=== PATIENT | female | born 1985 | race Caucasian/White ===

== ENCOUNTER 2016-11-28 12:13 | Emergency (ER) | payer OTHER ==
[2016-11-28 12:26] VITALS: BP 125/73; PULSE 95; TEMP 98.4; BMI 24.4
--- NOTE | 2016-11-28 15:09 | PDOC ---
History of Present Illness - General Chief Complaint: Cold Symptoms Stated Complaint: SORE THROAT COUGH FEVER Time Seen by Provider: 11/28/16 14:18 History Source: Patient Exam Limitations: No Limitations - History of Present Illness Initial Comments: 11/28/16 15:43 Chief complaint: Sore throat Patient is a healthy 31-year-old female with a few days of fever, sore throat and runny nose. Fever is getting better, no fever today and patient is complaining of worsening sore throat and difficulty swallowing. Patient did not take any medicine today. GENERAL/CONSTITUTIONAL: No fever, weakness. dizziness HEAD, EYES, EARS, NOSE AND THROAT: No change in vision. No ear pain or discharge. +sore throat. CARDIOVASCULAR: No chest pain RESPIRATORY: No shortness of breath or cough GASTROINTESTINAL: No pain, nausea, vomiting, diarrhea or constipation GENITOURINARY: No dysuria MUSCULOSKELETAL: No neck or back pain SKIN: No rash NEUROLOGIC: No headache, vertigo, loss of consciousness, or loss of sensation. GENERAL: The patient is awake, alert, and fully oriented, in no acute distress. HEAD: Normal with no signs of trauma. EYES: Pupils equal, round and reactive to light, sclera anicteric, conjunctiva clear. ENT: pharynx: +erythema, +exudate, uvula midline, no signs of abscess, normal speech NECK: supple CHEST: clear, nontender, rr ABD: soft, nontender EXTREMITIES: Normal range of motion, no edema. NEUROLOGICAL: Normal speech, normal gait. SKIN: Warm, Dry Past History - Past Medical History Allergies/Adverse Reactions: Allergies Allergy/AdvReac Type Severity Reaction Status Date / Time No Known Allergies Allergy Verified 11/28/16 12:26 Home Medications: Ambulatory Orders Amoxicillin - [Amoxicillin 875mg Tablet -] 875 mg PO BID #20 tablet 11/28/16 - Psycho/Social/Smoking Cessation Hx Suicidal Ideation: No Smoking History: Never smoked Information on smoking cessation initiated: No *Physical Exam - Vital Signs Last Vital Signs Temp Pulse Resp BP Pulse Ox 98.4 F 95 H 18 125/73 100 11/28/16 12:23 11/28/16 12:23 11/28/16 12:23 11/28/16 12:23 11/28/16 12:23 Medical Decision Making - Medical Decision Making 11/28/16 15:46 Patient with resolving URI, worsening sore throat with erythema and small amount of exudate, no signs of abscess, has normal voice, can swallow, can drink fluids and take medicine. Patient will be prescribed amoxicillin and given instructions. 11/28/16 15:46 *DC/Admit/Observation/Transfer Diagnosis at time of Disposition: Pharyngitis Qualifiers: Pharyngitis/tonsillitis etiology: unspecified etiology Qualified Code(s): J02.9 - Acute pharyngitis, unspecified - Discharge Dispostion Disposition: HOME Condition at time of disposition: Stable Admit: No - Prescriptions Prescriptions: Amoxicillin - [Amoxicillin 875mg Tablet -] 875 mg PO BID #20 tablet - Referrals Referrals: STAFF,NOT ON [Primary Care Provider] - - Patient Instructions Printed Discharge Instructions: DI for Pharyngitis/Tonsillopharyngitis -- Adult Additional Instructions: Drink 2-3 L of water daily Take Tylenol 650 mg every 4 hours or Motrin 600 mg every 6 hours for fever and pain Take the amoxicillin one tablet every 12 hours for 10 days, do not stop it early , he should also take acidophilus to help prevent stomach upset and/or yeast infection Return to the nearest ER if short of breath, unable to swallow or feeling sicker Followup with your doctor in one to 2 days Print Language: LITHUANIAN
== END 2016-11-28 15:12 | disposition home or self-care (01) ==
LOC: JERFT 12:13
DX: J02.0 Streptococcal pharyngitis (principal); B95.0 Streptococcus, group A, as the cause of diseases classified elsewhere
CPT/HCPCS: 87070; 87077; 87430; 99281-25

== ENCOUNTER 2017-11-01 19:13 | Emergency (ER) | payer SELFPAY ==
--- NOTE | 2017-11-01 19:18 | PDOC ---
Rapid Medical Evaluation Medical Evaluation: Allergies Allergy/AdvReac Type Severity Reaction Status Date / Time No Known Allergies Allergy Verified 11/28/16 12:26 11/01/17 19:14 I have performed a brief in-person evaluation of this patient. The patient presents with a chief complaint of: N/V in preg, 8 weeks preg, LMP end of aug 16, 6-7 days vomiting went to ER last week at [facility], given [place], appt with OB in [place] on 11/10, I have ordered the following: sabrina The patient will proceed to the ED for further evaluation. Discharge Disposition - Diagnosis Hyperemesis gravidarum - Referrals - Patient Instructions - Post Discharge Activity
[2017-11-01] MEDS ORDERED: ONDANSETRON *ODT* 4 MG TABLET SL ONE (19:20)
[2017-11-01 19:30] VITALS: BMI 25.0
[2017-11-01] MEDS ORDERED: ONDANSETRON *ODT* 4 MG TABLET ONE (19:37)
[2017-11-01] MEDS ORDERED: SODIUM CHLORIDE 1,000 ML IV STA (19:57)
--- NOTE | 2017-11-01 19:57 | PDOC ---
History of Present Illness - General Exam Limitations: No Limitations - History of Present Illness Initial Comments: 11/01/17 20:09 32 year old female who is 8 weeks , with no significant past medical history, who presents to the emergency room complaining of 1 week of nausea, nonbloody nonbilious vomiting, and diffuse abdominal pain. The patient explains that she was seen at another hospital on , 5 days ago where an ultrasound was performed which revealed an intrauterine of 8 weeks gestational age. She was discharged with Macrobid for a UTI and diclegis for nausea. She states that she finished the course of medication for nausea, but is persistently vomiting and cannot tolerate food and fluids. She denies cramping, bleeding, and release of fluids. Denies fever, chills. Denies sick contact. Denies recent travel. Allergies: NKA <Sejal Topete - Last Filed: 11/01/17 20:09> - General History Source: Patient <Quang Hidalgo - Last Filed: 11/01/17 22:57> - General Chief Complaint: Weakness Stated Complaint: FATIGUE ( 8 WKS ) Time Seen by Provider: 11/01/17 19:27 Past History <Sejal Topete - Last Filed: 11/01/17 20:09> - Past Medical History COPD: No - Suicide/Smoking/Psychosocial Hx Smoking History: Never smoked Have you smoked in the past 12 months: No Information on smoking cessation initiated: No Hx Alcohol Use: No Drug/Substance Use Hx: No <Quang Hidalgo - Last Filed: 11/01/17 22:57> - Past Medical History Allergies/Adverse Reactions: Allergies Allergy/AdvReac Type Severity Reaction Status Date / Time No Known Allergies Allergy Verified 11/01/17 19:25 Home Medications: Ambulatory Orders Pantoprazole Sodium [Protonix] 40 mg PO DAILY #30 tablet. 11/01/17 Trimethobenzamide HCl [Tigan] 300 mg PO TID #30 capsule 11/01/17 Review of Systems - Review of Systems Able to Perform ROS?: Yes Comments:: 11/01/17 20:09 CONSTITUTIONAL: Absent: fever, no chills, no fatigue EYES: Absent: visual changes ENT: Absent: ear pain, no sore throat CARDIOVASCULAR: Absent: chest pain, no palpitations RESPIRATORY: Absent: cough, no SOB GI: Present: +nausea, vomiting, diffuse abdominal pain Absent: no constipation, no diarrhea GENITOURINARY: Absent: dysuria, no frequency, no hematuria MUSCULOSKELETAL: Absent: back pain, no arthralgia, no myalgia SKIN: Absent: rash <Sejal Topete - Last Filed: 11/01/17 20:09> *Physical Exam - Vital Signs Last Vital Signs Temp Pulse Resp BP Pulse Ox 98.2 F 100 H 20 153/82 100 11/01/17 19:25 11/01/17 19:25 11/01/17 19:25 11/01/17 19:25 11/01/17 19:25 - Physical Exam Comments: 11/01/17 20:10 GENERAL: Well-appearing, well-nourished. No apparent distress. HEENT: Normocephalic, atraumatic. PERRL, EOM intact. CARDIOVASCULAR: Normal S1, S2. Regular rate and rhythm. PULMONARY: Clear to auscultation bilaterally. ABDOMEN: +mild diffuse abdominal tenderness. Soft. EXTREMITIES: Normal ROM in all four extremities. No gross deformities. SKIN: Warm, dry. No rash NEUROLOGICAL: No focal neurological deficits. <Sejal Topete - Last Filed: 11/01/17 20:09> - Vital Signs Last Vital Signs Temp Pulse Resp BP Pulse Ox 98.2 F 100 H 20 153/82 100 11/01/17 19:25 11/01/17 19:25 11/01/17 19:25 11/01/17 19:25 11/01/17 19:25 <Quang Hidalgo - Last Filed: 11/01/17 22:57> ED Treatment Course - Medications Given in the ED: ED Medications Discontinued Medications Generic Name Dose Route Start Last Admin Trade Name Freq PRN Reason Stop Dose Admin Ondansetron HCl 8 mg 11/01/17 19:20 11/01/17 19:43 Zofran Odt - SL 11/01/17 19:21 8 mg ONCE ONE Administration <Sejal Topete - Last Filed: 11/01/17 20:09> - LABORATORY CBC & Chemistry Diagram: 11/01/17 20:30 11/01/17 20:30 - Medications Given in the ED: ED Medications Discontinued Medications Generic Name Dose Route Start Last Admin Trade Name Adriana PRN Reason Stop Dose Admin Ondansetron HCl 8 mg 11/01/17 19:20 11/01/17 19:43 Zofran Odt - SL 11/01/17 19:21 8 mg ONCE ONE Administration <Quang Hidalgo - Last Filed: 11/01/17 22:57> Medical Decision Making - Medical Decision Making 11/01/17 22:56 Dr. Hidalgo: The scribe's documentation has been prepared under my direction and personally reviewed by me in its entirery. I confirm that the note above accurately reflects all work, treatment, procedures, and medical decision making performed by me. <Quang Hidalgo - Last Filed: 11/01/17 22:57> *DC/Admit/Observation/Transfer - Attestations Scribe Attestion: 11/01/17 20:10 Documentation prepared by VEENA Wright, acting as medical planner for Quang Hidalgo MD. <Sejal Topete - Last Filed: 11/01/17 20:09> - Discharge Dispostion Admit: No <Quang Hidalgo - Last Filed: 11/01/17 22:57> Diagnosis at time of Disposition: Hyperemesis gravidarum - Discharge Dispostion Disposition: HOME Condition at time of disposition: Stable - Prescriptions Prescriptions: Pantoprazole Sodium [Protonix] 40 mg PO DAILY #30 tablet. Trimethobenzamide HCl [Tigan] 300 mg PO TID #30 capsule - Referrals Referrals: Ceci Wallace MD [Staff Physician] - - Patient Instructions Printed Discharge Instructions: DI for Hyperemesis Gravidarum Print Language: FRISIAN
[2017-11-01] MEDS ORDERED: PANTOPRAZOLE SODIUM 40 MG VIAL IVPUSH ONE (19:58)
[2017-11-01] MEDS ORDERED: DEXTROSE 5%-0.45% SALINE 1,000 ML IV SCH (20:00)
[2017-11-01] MEDS ORDERED: PANTOPRAZOLE SODIUM 40 MG/100 ML BAG IVPB ONE (20:17)
[2017-11-01 20:40] LABS: BASOPHIL 0.6 % (0-2.0); EOSINOPHIL 0.3 % (0-4.5); MCH 29.3 pg (25.7-33.7); MCHC 33.5 g/dl (32.0-36.0); MEAN CELL VOLUME 87.3 fl (80-96); MEAN PLT VOLUME 7.3 fl (7.5-11.1); NEUTROPHILS 68.1 % (42.8-82.8); PLATELET COUNT 359 K/MM3 (134-434); RDW 12.7 % (11.6-15.6); WHITE BLOOD COUNT 13.4 K/mm3 (4.0-10.0)
[2017-11-01 21:13] LABS: ACETONE SERUM NEGATIVE (NEGATIVE)
[2017-11-01 21:17] LABS: ALBUMIN 3.7 g/dl (3.4-5.0); ANION GAP 8 (8-16); BILIRUBIN,TOTAL 0.9 mg/dL (0.2-1.0); CALCIUM 8.9 mg/dL (8.5-10.1); CO2 26 mmol/L (21-32); CREATININE 0.6 mg/dL (0.55-1.02); GLUCOSE,RANDOM 80 mg/dL (74-106); SGOT/AST 25 U/L (15-37); SGPT/ALT 41 U/L (12-78); TOT PROT 7.6 g/dl (6.4-8.2)
[2017-11-01 21:32] LABS: ALK PHOS 69 U/L (45-117)
[2017-11-01 22:57] VITALS: BP 105/65; PULSE 87; TEMP 99.6
== END 2017-11-01 23:14 | disposition home or self-care (01) ==
LOC: JER 19:13
PROC: 3E0337Z Introduction of Electrolytic and Water Balance Substance into Peripheral Vein, Percutaneous Approach (ICD-10-PCS; principal; 2017-11-01)
PROC: 3E033GC Introduction of Other Therapeutic Substance into Peripheral Vein, Percutaneous Approach (ICD-10-PCS; 2017-11-01)
DX: O26.891 Other specified pregnancy related conditions, first trimester (principal); O21.0 Mild hyperemesis gravidarum; Z3A.08 8 weeks gestation of pregnancy
CPT/HCPCS: 36415; 76801-TC; 76817-TC; 80053; 82009; 84702; 85025; 99281-25

== ENCOUNTER 2017-11-07 10:32 | Emergency (ER) | payer OTHER ==
[2017-11-07 10:40] VITALS: BMI 25.0
[2017-11-07] MEDS ORDERED: ONDANSETRON 4 MG/2 ML VIAL IVPB ONE (11:36)
[2017-11-07] MEDS ORDERED: SODIUM CHLORIDE 1,000 ML IV STA (11:36)
[2017-11-07] MEDS ORDERED: ONDANSETRON 4 MG/2 ML VIAL ONE (11:57)
[2017-11-07] MEDS ORDERED: FAMOTIDINE 20 MG/50 ML IVPB 20 MG/50 ML MG IVPB ONE (11:57)
[2017-11-07] MEDS ORDERED: FAMOTIDINE 20 MG/50 ML IVPB 50 MG/125 ML MG IVPB ONE (12:00)
[2017-11-07 12:04] LABS: BASOPHIL 0.3 % (0-2.0); EOSINOPHIL 0.1 % (0-4.5); MCH 28.8 pg (25.7-33.7); MCHC 33.2 g/dl (32.0-36.0); MEAN CELL VOLUME 86.6 fl (80-96); MEAN PLT VOLUME 7.3 fl (7.5-11.1); NEUTROPHILS 81.9 % (42.8-82.8); PLATELET COUNT 323 K/MM3 (134-434); RDW 12.9 % (11.6-15.6); WHITE BLOOD COUNT 11.3 K/mm3 (4.0-10.0)
--- NOTE | 2017-11-07 12:08 | PDOC ---
History of Present Illness - General Chief Complaint: Pain, Acute Stated Complaint: 8 WEEK PREG,VOMITING Time Seen by Provider: 11/07/17 10:52 - History of Present Illness Initial Comments: 11/07/17 12:07 32 F @ approx 9 weeks gestation by TVUS, presenting with N/V. Pt states that she has h/o hyperemesis gravidarum. However, the medications she has been taking have not helped much. She reports morning nausea as well as nausea and vomiting after every meal. Denies diarrhea. Endorses epigastric cramping with vomiting. No lower abdominal pain. No vaginal bleeding/discharge. Pt also endorses foul smelling urine. Was diagnosed with UTI last week and completed course of macrobid. Denies F/C. Denies flank pain. Past History - Past Medical History Allergies/Adverse Reactions: Allergies Allergy/AdvReac Type Severity Reaction Status Date / Time No Known Allergies Allergy Verified 11/07/17 10:34 Home Medications: Ambulatory Orders Pantoprazole Sodium [Protonix] 40 mg PO DAILY #30 tablet.dr 11/01/17 Trimethobenzamide HCl [Tigan] 300 mg PO TID #30 capsule 11/01/17 Ondansetron [Zofran *Odt*] 8 mg SL BID PRN #30 od.tablet 11/07/17 COPD: No Other medical history: DENIES. - Reproductive History Is Patient Now?: Yes - Suicide/Smoking/Psychosocial Hx Smoking History: Never smoked Have you smoked in the past 12 months: No Hx Alcohol Use: No Drug/Substance Use Hx: No Review of Systems - Review of Systems Comments:: 11/07/17 12:25 "GENERAL/CONSTITUTIONAL: No fever or chills. No weakness. HEAD, EYES, EARS, NOSE AND THROAT: No change in vision. No ear pain or discharge. No sore throat. CARDIOVASCULAR: No chest pain or shortness of breath. RESPIRATORY: No cough, wheezing, or hemoptysis. GASTROINTESTINAL: +N/V, epigastric cramps, no diarrhea or constipation. GENITOURINARY: +foul smelling urine, No dysuria, frequency, or change in urination. MUSCULOSKELETAL: No joint or muscle swelling or pain. No neck or back pain. SKIN: No rash NEUROLOGIC: No headache, vertigo, loss of consciousness, or change in strength/ sensation. ENDOCRINE: No increased thirst. No abnormal weight change. HEMATOLOGIC/LYMPHATIC: No anemia, easy bleeding, or history of blood clots. ALLERGIC/IMMUNOLOGIC: No hives or skin allergy. " *Physical Exam - Vital Signs Last Vital Signs Temp Pulse Resp BP Pulse Ox 98.3 F 98 H 19 128/76 100 11/07/17 10:35 11/07/17 10:35 11/07/17 10:35 11/07/17 10:35 11/07/17 10:35 - Physical Exam Comments: 11/07/17 12:25 "GENERAL: Awake, alert, and fully oriented, in no acute distress HEAD: No signs of trauma EYES: PERRLA, EOMI, sclera anicteric, conjunctiva clear ENT: Auricles normal inspection, hearing grossly normal, nares patent, oropharynx clear without exudates. Moist mucosa NECK: Nontender, no stepoffs, Normal ROM, supple, no lymphadenopathy, JVD, or masses LUNGS: Breath sounds equal, clear to auscultation bilaterally. No wheezes, and no crackles HEART: Regular rate and rhythm, normal S1 and S2, no murmurs, rubs or gallops ABDOMEN: Soft, +epigastric tenderness, normoactive bowel sounds. No guarding, no rebound. No masses EXTREMITIES: Normal range of motion, no edema. No clubbing or cyanosis. No cords, erythema, or tenderness NEUROLOGICAL: Cranial nerves II through XII intact. 5/5 strength and sensation in all extremities, Normal speech, normal gait SKIN: Warm, Dry, normal turgor, no rashes or lesions noted. " ED Treatment Course - LABORATORY CBC & Chemistry Diagram: 11/07/17 11:55 11/07/17 11:55 - ADDITIONAL ORDERS Additional order review: 11/07/17 11:55 RBC 4.45 MCV 86.6 MCHC 33.2 RDW 12.9 MPV 7.3 L Neutrophils % 81.9 D Lymphocytes % 14.2 D Monocytes % 3.5 L Eosinophils % 0.1 Basophils % 0.3 - Medications Given in the ED: ED Medications Discontinued Medications Generic Name Dose Route Start Last Admin Trade Name Freq PRN Reason Stop Dose Admin Ondansetron HCl 4 mg 11/07/17 11:36 11/07/17 12:05 Zofran Injection IVPB 11/07/17 11:37 4 mg ONCE ONE Administration Medical Decision Making - Medical Decision Making 11/07/17 12:25 32 F @ 9 weeks presenting with N+V. Consistent with known hyperemesis gravidarum. Pt non-toxic appearing with normal vitals. Abdomen notable only for epigastric tenderness. Pt may also have UTI contributing to symptoms. Completed course of macrobid. If UA consistent with UTI, consider tx for pyelo. - Labs, UA - IVF, zofran 11/07/17 13:51 CBC,CMP WBC 11.3 K/mm3 (4.0-10.0) H 11/07/17 11:55 RBC 4.45 M/mm3 (3.60-5.2) 11/07/17 11:55 Hgb 12.8 GM/dL (10.7-15.3) 11/07/17 11:55 Hct 38.6 % (32.4-45.2) 11/07/17 11:55 MCV 86.6 fl (80-96) 11/07/17 11:55 MCH 28.8 pg (25.7-33.7) 11/07/17 11:55 MCHC 33.2 g/dl (32.0-36.0) 11/07/17 11:55 RDW 12.9 % (11.6-15.6) 11/07/17 11:55 Plt Count 323 K/MM3 (134-434) 11/07/17 11:55 MPV 7.3 fl (7.5-11.1) L 11/07/17 11:55 Neutrophils % 81.9 % (42.8-82.8) D 11/07/17 11:55 Lymphocytes % 14.2 % (8-40) D 11/07/17 11:55 Monocytes % 3.5 % (3.8-10.2) L 11/07/17 11:55 Eosinophils % 0.1 % (0-4.5) 11/07/17 11:55 Basophils % 0.3 % (0-2.0) 11/07/17 11:55 Sodium 134 mmol/L (136-145) L 11/07/17 11:55 Potassium 4.2 mmol/L (3.5-5.1) 11/07/17 11:55 Chloride 102 mmol/L (98-107) 11/07/17 11:55 Carbon Dioxide 22 mmol/L (21-32) 11/07/17 11:55 Anion Gap 10 (8-16) 11/07/17 11:55 BUN 7 mg/dL (7-18) 11/07/17 11:55 Creatinine 0.5 mg/dL (0.55-1.02) L 11/07/17 11:55 Creat Clearance w eGFR > 60 (>60) 11/07/17 11:55 Random Glucose 74 mg/dL (74-106) 11/07/17 11:55 Calcium 9.2 mg/dL (8.5-10.1) 11/07/17 11:55 Total Bilirubin 0.8 mg/dL (0.2-1.0) 11/07/17 11:55 AST 15 U/L (15-37) D 11/07/17 11:55 ALT 30 U/L (12-78) D 11/07/17 11:55 Alkaline Phosphatase 64 U/L (45-117) 11/07/17 11:55 Creatine Kinase Cancelled 11/07/17 11:58 Troponin I Cancelled 11/07/17 11:58 Total Protein 7.7 g/dl (6.4-8.2) 11/07/17 11:55 Albumin 3.7 g/dl (3.4-5.0) 11/07/17 11:55 Lipase 260 U/L (73-393) 11/07/17 11:55 Beta HCG, Quant 036014.1 mIU/ml 11/07/17 11:55 Urine Test Results Urine Color Dkyellow 11/07/17 13:00 Urine Appearance Slcloudy 11/07/17 13:00 Urine pH 5.0 (5.0-8.0) 11/07/17 13:00 Ur Specific [place] 1.031 (1.001-1.035) 11/07/17 13:00 Urine Protein 1+ (NEGATIVE) H 11/07/17 13:00 Urine Glucose (UA) Negative (NEGATIVE) 11/07/17 13:00 Urine Ketones 2+ (NEGATIVE) H 11/07/17 13:00 Urine Blood Negative (NEGATIVE) 11/07/17 13:00 Urine Nitrite Negative (NEGATIVE) 11/07/17 13:00 Urine Bilirubin Negative (NEGATIVE) 11/07/17 13:00 Ur Epithelial Cells Rare /HPF (FEW) 11/07/17 13:00 Urine Mucus Many 11/07/17 13:00 11/07/17 13:59 Pt re-evaluated. Now tolerating PO juice and crackers. Pt reports resolution of her nausea. Repeat examination benign, no abdominal tenderness. Vitals stable, pt with no complaints and well appearing. Clinically stable for DC. *DC/Admit/Observation/Transfer Diagnosis at time of Disposition: Hyperemesis gravidarum - Discharge Dispostion Disposition: HOME - Prescriptions Prescriptions: Ondansetron [Zofran *Odt*] 8 mg SL BID PRN #30 od.tablet PRN Reason: Nausea - Referrals Referrals: José Miguel Sheppard MD [Staff Physician] - Aayush Edmondson MD [Staff Physician] - - Patient Instructions Printed Discharge Instructions: DI for Hyperemesis Gravidarum Additional Instructions: Take one zofran every 12 hours as needed for nausea and vomiting. If you experience worsening nausea, abdominal pain, fevers, or any other concerning symptoms, return to the ER immediately. Otherwise, follow up with your writing manager within 1 week for a re-evaluation. Call the numbers provided to make appointments with our OB clinic and primary care clinic. - Post Discharge Activity - Attestations Physician Attestion: 11/07/17 13:59 I, Dr. Jean Pierre Rodríguez MD, attest that this document has been prepared under my direction and personally reviewed by me in its entirety. I further attest, that it accurately reflects all work, treatment, procedures and medical decision -making performed by me.
[2017-11-07 12:31] LABS: ALBUMIN 3.7 g/dl (3.4-5.0); ANION GAP 10 (8-16); BILIRUBIN,TOTAL 0.8 mg/dL (0.2-1.0); CALCIUM 9.2 mg/dL (8.5-10.1); CO2 22 mmol/L (21-32); CREATININE 0.5 mg/dL (0.55-1.02); GLUCOSE,RANDOM 74 mg/dL (74-106); SGOT/AST 15 U/L (15-37); SGPT/ALT 30 U/L (12-78); TOT PROT 7.7 g/dl (6.4-8.2)
[2017-11-07 12:45] LABS: ALK PHOS 64 U/L (45-117)
[2017-11-07 13:21] LABS: CPK 34 IU/L (26-192); TROPONIN I < 0.02 ng/ml (0.00-0.05)
[2017-11-07 13:25] LABS: URINE APPEARANCE SLCLOUDY; URINE BILIRUBIN NEGATIVE (NEGATIVE); URINE BLOOD NEGATIVE (NEGATIVE); URINE COLOR DKYELLOW; URINE GLUCOSE (UA) NEGATIVE (NEGATIVE); URINE KETONE 2+ (NEGATIVE); URINE LEUK ESTERASE NEGATIVE (NEGATIVE); URINE NITRITE NEGATIVE (NEGATIVE)
[2017-11-07 13:30] LABS: URINE PROTEIN 1+ (NEGATIVE)
[2017-11-07 13:35] LABS: URINE MUCUS MANY; URINE RBC 1 /hpf (0-3); URINE WBC 1 /hpf (3-5)
--- NOTE | 2017-11-07 14:32 | EKG ---
Test Reason : Blood Pressure : / mmHG Vent. Rate : 076 BPM Atrial Rate : 076 BPM P-R Int : 172 ms QRS Dur : 082 ms QT Int : 382 ms P-R-T Axes : 063 054 023 degrees QTc Int : 429 ms NORMAL SINUS RHYTHM NONSPECIFIC T WAVE ABNORMALITY ABNORMAL ECG NO PREVIOUS ECGS AVAILABLE Confirmed by ASHELE FUNEZ MD ([id number]) on 11/07/2017 2:32:31 PM Referred By: Confirmed By:ASHLEE FUNEZ MD
[2017-11-07 14:33] VITALS: BP 104/52; PULSE 82; TEMP 97.8
[2017-11-07 18:36] LABS: URINE LEUK ESTERASE NEGATIVE (NEGATIVE)
== END 2017-11-07 14:37 | disposition home or self-care (01) ==
LOC: JER 10:32
PROC: 3E033GC Introduction of Other Therapeutic Substance into Peripheral Vein, Percutaneous Approach (ICD-10-PCS; principal; 2017-11-07)
PROC: 3E0337Z Introduction of Electrolytic and Water Balance Substance into Peripheral Vein, Percutaneous Approach (ICD-10-PCS; 2017-11-07)
DX: O26.891 Other specified pregnancy related conditions, first trimester (principal); Z3A.09 9 weeks gestation of pregnancy; O21.0 Mild hyperemesis gravidarum
CPT/HCPCS: 36415; 80053; 81003; 81015; 82550; 83690; 84484; 84702; 85025; 86850; 86900; 86901; 87086; 93005; 93010; 99283-25

== ENCOUNTER 2018-05-31 06:40 | Inpatient (IN) | payer OTHER ==
[2018-05-31] MEDS ORDERED: ELECTROLYTE-148 SOLN 500 ML IV ONE (07:00)
[2018-05-31] MEDS ORDERED: CITRIC ACID/SODIUM CITRATE 30 ML UNIT-DOSE CUP PO ONE (07:53)
[2018-05-31] MEDS ORDERED: ELECTROLYTE-148 SOLN 1,000 ML IV SCH (08:00)
[2018-05-31] MEDS ORDERED: morphine SULFATE/Preservative Free 0.5 MG/ML (1cc Syringe) ONE (08:07)
[2018-05-31] MEDS ORDERED: BUPIVACAINE 0.75% IN DEXTROSE/PF 2ML AMPULE NR ONE (08:08)
--- NOTE | 2018-05-31 08:08 | HP ---
Past Medical History - Primary Care Physician PCP:: Vero Dunbar - Admission Chief Complaint: 33 yrs , 39 weeks , iup , previous c/section requests for repeat c/section History of Present Illness: PNC at [address] [place] [address] . wt gain 15 lbs panel : A neg , Rpr nr,Hbsag neg, Rubella immune, gc/ct neg, Pap nilm, Hiv neg 02/27/18 pngt 45, rpr nr, Quantiferon neg 03/20/18 coomb's neg followed in 2 days by Rhogam antepartum 05/15/18 Gbs neg, gc/ct neg. hiv neg , h/h 11.6/34.2 sono done by 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 Weeks Gestation by Dates: 36.4 ...EDC by Dates: 06/24/18 ...EDC by Sono: 06/07/18 (39) Heme/Onc: Yes: Anemia (treated with iron & pnv) Infectious Disease: No: AIDS, HIV, STD's, Tuberculosis Psych: No: Addictions, Anxiety, Bipolar, Depression, Panic, Psychosis, Schizophrenia - Past Surgical History Hx Myomectomy: No Hx Transabdominal Cerclage: No - Smoking History Smoking history: Never smoked Have you smoked in the past 12 months: No - Alcohol/Substance Use Hx Alcohol Use: No History of Substance Use: reports: None Home Medications - Allergies Allergies/Adverse Reactions: Allergies Allergy/AdvReac Type Severity Reaction Status Date / Time No Known Allergies Allergy Verified 05/31/18 07:22 - Home Medications Home Medications: Ambulatory Orders Pnv No.95/Ferrous Fum/Folic AC [ Vitamin Tablet] 1 each PO DAILY Physical Exam - Maternity Vital Signs: Vital Signs Temperature 98.5 F 05/31/18 06:40 Pulse Rate 100 H 05/31/18 06:40 Respiratory Rate 18 05/31/18 06:40 Blood Pressure 108/70 05/31/18 06:40 O2 Sat by Pulse Oximetry (%) Selected Entries 05/31/18 06:40 Weight 175 lb Constitutional: Yes: Well Nourished, Obese Eyes: Yes: WNL HENT: Yes: WNL, Normocephalic Neck: Yes: WNL Cardiovascular: Yes: WNL Lungs: Clear to auscultation Breast(s): Yes: WNL - Abdominal Exam/OB Fundal Height: 38 Number of Fetuses: Single Presentation: Vertex Contractions: No Monitor Mode: External Heart Rate (range): 136 Heart Rate Location: [facility] Category: I Accelerations: Uniform Decelerations: None - Vaginal Exam/OB Vaginal Bleediing: No Speculum Exam: No Dilatation (cm): close Effacement (%): unefface Presentation: Vertex/Position Station: -3 - Physical Exam Musculoskeletal: Yes: WNL Extremities: Yes: WNL. No: Calf Tenderness Edema: Yes Edema: LLE: 1+, RLE: 1+ Integumentary: Yes: WNL, Incision (pfannensteil scar), Tattoos Deep Tendon Reflex Grade: Normal +2 ...Motor Strength: WNL Psychiatric: Yes: WNL, Alert, Oriented - Labs Lab Results: Laboratory Tests 05/28/18 05/28/18 05/28/18 08:58 08:58 08:58 WBC 9.0 RBC 3.83 Hgb 11.6 Hct 34.4 Plt Count 273 PT with INR 10.70 INR 0.95 Sodium Potassium Chloride Carbon Dioxide BUN Creatinine Creat Clearance w eGFR Random Glucose AST ALT Urine Protein Negative Urine Blood 2+ H Ur Leukocyte Esterase 3+ H Urine WBC (Auto) 8 Urine RBC (Auto) 49 RPR Titer 05/28/18 05/28/18 08:58 08:58 WBC RBC Hgb Hct Plt Count PT with INR INR Sodium 137 Potassium 4.0 Chloride 104 Carbon Dioxide 23 BUN 8 Creatinine 0.6 Creat Clearance w eGFR > 60 Random Glucose 72 L AST 17 ALT 16 Urine Protein Urine Blood Ur Leukocyte Esterase Urine WBC (Auto) Urine RBC (Auto) RPR Titer Nonreactive Problem List - Problems (1) with 39 completed weeks gestation Code(s): Z3A.39 - 39 WEEKS GESTATION OF (2) Previous section Code(s): Z98.891 - HISTORY OF UTERINE SCAR FROM PREVIOUS SURGERY (3) Obesity (BMI 30.0-34.9) Code(s): E66.9 - OBESITY, UNSPECIFIED Assessment/Plan 32 yrs , previous c/s , 39 wks requests repeat c/section Plan repeat c/section
[2018-05-31] MEDS ORDERED: ceFAZolin SODIUM 1 GM VIAL ONE ×3 (08:09→23:54)
[2018-05-31] MEDS ORDERED: OXYTOCIN 20 UNITS in 0.9% NS 20 UNIT/1,000 ML INFUS.BAG IV ONE ×2 (08:11→10:27)
[2018-05-31] MEDS ORDERED: morphine SULFATE/Preservative Free 0.5 MG/ML (1cc Syringe) SPIN ONE (08:17)
[2018-05-31] MEDS ORDERED: PHENYLEPHRINE HCL 10 MG/1 ML SINGLE DOSE VIAL ONE (08:25)
[2018-05-31] MEDS ORDERED: ONDANSETRON 4 MG/2 ML VIAL IVPUSH PRN (08:29)
[2018-05-31] MEDS ORDERED: ACETAMINOPHEN 325 MG TABLET (FP) PO PRN (08:29)
[2018-05-31 09:03] LABS: ARTERIAL BLD GAS O2 SATURATION 17.5 % (90-98.9); ARTERIAL BLOOD GAS BASE EXCESS -0.6 meq/l (-2-2); ARTERIAL BLOOD GAS PO2 15.6 mmHg (80-100); ARTERIAL BLOOD GAS pH 7.28 (7.35-7.45)
[2018-05-31 09:10] LABS: VENOUS PC02 45.9 mmHg (38-52); VENOUS PH 7.35 (7.32-7.42); VENOUS PO2 28.2 mmHg (28-48)
[2018-05-31] MEDS ORDERED: SENNOSIDES/DOCUSATE COMBO (SENNA PLUS) TABLET (UD) PO PRN (09:18)
[2018-05-31] MEDS ORDERED: METHYLERGONOVINE MALEATE 0.2 MG/1 ML AMP IM PRN (09:18)
[2018-05-31] MEDS ORDERED: IBUPROFEN 800 MG/8 ML IJ IVPB PRN (09:18)
--- NOTE | 2018-05-31 09:32 | PN ---
Delivery - Delivery Section: Repeat, Low Flap Transverse (39 weeks, previous c/section) Type of Anesthesia: Spinal EBL (cc): 800 (200 ml samuel color urine pichardo ) Delivery, Single - Stages of Labor Date of Delivery: 05/31/18 Time of Delivery: 08:33 Placenta: Yes: Manual Removal, Uterine Exploration - Condition of Fitness Specialist/Bumper Operator Present: Yes Name: Frida Fleming Infant Gender: Female Weight: 6 lb 2 oz Position: Right, OT - 1 Minute Total Score: 9 5 Minutes Total Score: 9 - [place] Feeding Plan Initial Plan: Elected not to breastfeed exclusively throughout hospitalization Remarks - Remarks Remarks: 33 yrs , previous c/section in DR, type unknown , requests for repeat c/ s PNC at 2, [facility] gbs neg Intraop course uneventful
--- NOTE | 2018-05-31 09:38 | OP ---
Operative Note - Note: Operative Date: 05/31/18 Pre-Operative Diagnosis: 39 weeks, previous c/s type unknown Operation: Repeat LFTC/section Findings: Baby Girl ROT position, 9/, Wt 6'2' Ht 18.5" both tubes & ovaries normal piece jobber Dr levin present in the room Surgeon: Vero Dunbar [employer] Sharpshooter: Enoc Jimenez Anesthesiologist/CERAMIC TILE INSTALLER: Brad Camilo Anesthesia: Spinal Specimens Removed: cord seg ment for cord gas. cord blood. placenta Estimated Blood Loss (mls): 800 Drains, Volume Out (mls): 200 Fluid Volume Replaced (mls): 1,500 (iv ancef 1 gm prior to incision ) Operative Report Dictated: Yes
--- NOTE | 2018-05-31 10:09 | OP ---
DATE OF OPERATION: 05/31/2018 PREOPERATIVE DIAGNOSES: A 39-week ; previous section, type unknown; request for repeat section. OPERATION DONE: Repeat low flap transverse section. SURGEON: Vero Dunbar MD ANIMATION CAMERA OPERATOR: MANUEL Singletary ANESTHESIOLOGIST: Brad Camilo MD ANESTHESIA: Spinal. LOCOMOTIVE PIPE FITTER: Frida Fleming DO FINDINGS: A 33-year-old 2, para 1-0-0-1 not in labor at 39 weeks and had a previous done in [facility]. Do not know the type of the . The baby girl, 9, 9, weight was 6 pounds and 2 ounces. PROCEDURE: Patient was taken on to the operating room table. Abdomen was shaved, prepped and a Casas catheter was placed. She was taken into the operating room and she was given spinal anesthesia. She was placed in supine position. Abdomen was painted and draped in usual manner. Pfannenstiel incision was made through previous scar, skin, subcutaneous tissue. Anterior rectus sheath was incised transversely. Bleeding points were clamped and cauterized and rectus muscle was from the rectus sheath. Parietal peritoneum was opened vertically. Low flap bladder peritoneum was identified. This was incised transversely. Bladder was pushed down. The lower uterine segment was incised transversely. Amniotic fluid was clear. Baby was delivered from ROT position at 8:33 a.m. Apgars were 9, 9. Baby's weight was 6 pounds 2 ounces. Height was 18-1/2 inches and a baby girl. Cord was clamped, cut. Cord blood was collected and a cord segment was sent for the cord blood gas and placenta was completely removed with the membranes and sent for pathology. Uterine cavity was cleaned and the uterine incision was closed in 2 layers. First layer was closed with Biosyn 0 suture. Continuous locking sutures were taken. Second layer was closed with Biosyn 0 continuous intermittently locking sutures. Hemostasis was verified and then bladder peritoneum was closed during the 2nd layer together. Both tubes and ovaries were inspected. They were normal. Irrigation was done and hemostasis was verified once again. Sponge, instrument, needle counts were correct. Closure of the abdomen was done. Parietal peritoneum was closed with 0 Vicryl suture. Continuous sutures were taken and then hemostasis was checked underneath the rectus sheath flaps. Rectus sheath was closed with Vicryl 0 suture. Continuous sutures were taken. Subcutaneous tissue hemostasis verified and then irrigation was done. Subcutaneous tissue was approximated with 0 Biosyn interrupted sutures and the skin was approximated with shayla. Patient tolerated procedure well. Pressure dressing was given. Blood clots were removed from the vagina and she was transferred to the recovery room in stable condition. Estimated blood loss was 800 mL. Intraoperative urine output 200 mL, samuel color. She received IV Ancef 1 g prior to the incision and she received 1500 of the crystalloid solution. Jane [id number] MTDD
[2018-05-31] MEDS: OXYTOCIN 20 UNITS in 0.9% NS 20 UNIT/1,000 ML INFUS.BAG IV SCH (10:20)
[2018-05-31] MEDS ORDERED: CEFAZOLIN 1 GM in DEXTROSE 5%-WATER 100 ML IVPB SCH (16:00)
[2018-05-31] MEDS ORDERED: CEFAZOLIN 1 GM in DEXTROSE 5%-WATER - 50 ML IVPB SCH (16:08)
[2018-05-31] MEDS ORDERED: DEXTROSE 5%-WATER - 50 ML IVPB ONE ×2 (16:10→23:54)
[2018-05-31] MEDS: CEFAZOLIN 1 GM in DEXTROSE 5%-WATER - 50 ML IVPB SCH (16:29)
[2018-06-01] MEDS: CEFAZOLIN 1 GM in DEXTROSE 5%-WATER - 50 ML IVPB SCH ×2 (00:29→08:16)
[2018-06-01] MEDS: ACETAMINOPHEN 325 MG TABLET (FP) PO PRN ×2 (02:29→16:23)
[2018-06-01] MEDS: SIMETHICONE 80 MG TAB.CHEW (FP) PO PRN ×2 (02:29→16:23)
[2018-06-01] MEDS: IBUPROFEN 600 MG TABLET (FP) PO PRN ×2 (02:30→16:25)
[2018-06-01] MEDS ORDERED: oxyCODONE HCL 5 MG TABLET PO PRN ×2 (06:00)
[2018-06-01 07:46] LABS: BASO % 0.4 % (0-2.0); EOS % 0.4 % (0-4.5); HEMATOCRIT 33.7 % (32.4-45.2); HEMOGLOBIN 11.2 GM/dL (10.7-15.3); LYMPH % 21.4 % (8-40); MEAN CELL VOLUME 90.9 fl (80-96); MEAN PLT VOLUME 7.5 fl (7.5-11.1); MONO % 4.8 % (3.8-10.2); PLATELET COUNT 256 K/MM3 (134-434); RBC 3.71 M/mm3 (3.60-5.2); RDW 13.4 % (11.6-15.6); WHITE BLOOD COUNT 11.7 K/mm3 (4.0-10.0)
[2018-06-01] MEDS ORDERED: DEXTROSE 5%-WATER - 50 ML IVPB ONE (08:10)
[2018-06-01] MEDS ORDERED: ceFAZolin SODIUM 1 GM VIAL ONE (08:10)
[2018-06-01] MEDS ORDERED: BISACODYL 10 MG SUPP.RECT RC PRN (09:18)
[2018-06-01] MEDS: PRENATAL VITAMINS W/ FOLIC ACID TABLET (FP) PO SCH (09:48)
[2018-06-01] MEDS: ENOXAPARIN NA (PORCINE) 40 MG/0.4 ML DISP.SYRIN SQ SCH (10:05)
--- NOTE | 2018-06-01 10:15 | PN ---
Post Progress Note - Subjective Subjective: c/o pain scale 7/10 before pain meds , currently none she has not voided since pichardo is taken out Post Day: 1 Type of Delivery: Repeat C/S Vital Signs: Vital Signs Temperature 98.0 F 06/01/18 06:00 Pulse Rate 77 06/01/18 06:00 Respiratory Rate 20 06/01/18 08:00 Blood Pressure 112/57 06/01/18 06:00 O2 Sat by Pulse Oximetry (%) 100 05/31/18 10:05 Breast Exam: Yes: Soft, Other (BF). No: Engorged Uterus: Yes: Fundus Firm, Fundus below umbilicus, Non-tender Incision: Yes: Dressing dry and intact. No: Redness, Oozing Abdomen/GI: Yes: Abdomen soft (bs active ), Tolerating PO (clear liquids ). No : Abdominal Distention, Tender, Passing flatus Lochia: Yes: Rubra Lochia, amount: Moderate Extremities: Yes: Calves non-tender, Edema Perineum: Yes: Intact Activity: Ambulating - Labs Labs: CBC WBC 11.7 K/mm3 (4.0-10.0) H 06/01/18 07:08 RBC 3.71 M/mm3 (3.60-5.2) 06/01/18 07:08 Hgb 11.2 GM/dL (10.7-15.3) 06/01/18 07:08 Hct 33.7 % (32.4-45.2) 06/01/18 07:08 MCV 90.9 fl (80-96) 06/01/18 07:08 MCH 30.0 pg (25.7-33.7) 06/01/18 07:08 MCHC 33.0 g/dl (32.0-36.0) 06/01/18 07:08 RDW 13.4 % (11.6-15.6) 06/01/18 07:08 Plt Count 256 K/MM3 (134-434) 06/01/18 07:08 MPV 7.5 fl (7.5-11.1) 06/01/18 07:08 Absolute Neuts (auto) 8.5 # 06/01/18 07:08 Neutrophils % 73.0 % (42.8-82.8) D 06/01/18 07:08 Lymphocytes % 21.4 % (8-40) D 06/01/18 07:08 Monocytes % 4.8 % (3.8-10.2) 06/01/18 07:08 Eosinophils % 0.4 % (0-4.5) 06/01/18 07:08 Basophils % 0.4 % (0-2.0) 06/01/18 07:08 Nucleated RBC % 0 % (0-0) 06/01/18 07:08 Other Findings, Remarks: i/o 110/700 RS CTA Problem List - Problems (1) with 39 completed weeks gestation Code(s): Z3A.39 - 39 WEEKS GESTATION OF (2) Previous section Code(s): Z98.891 - HISTORY OF UTERINE SCAR FROM PREVIOUS SURGERY (3) Obesity (BMI 30.0-34.9) Code(s): E66.9 - OBESITY, UNSPECIFIED (4) delivery delivered Code(s): O82 - ENCOUNTER FOR DELIVERY WITHOUT INDICATION (5) care following delivery Code(s): Z39.2 - ENCOUNTER FOR ROUTINE FOLLOW-UP Assessment/Plan po day #1 stable . encourage anbulation , deep breathing , po fluid s
--- NOTE | 2018-06-01 13:00 | PN ---
Progress Note (short form) - Note Progress Note: Anesthesia Post-op Note Pt s/p repeat under spinal + duramorph on 05/31/16. Pt seen while ambulating. Reports pain controlled with current regimen. Tolerating PO. Reports normal strength and sensation in lower extremities. Vital Signs Temperature 98.0 F 06/01/18 10:00 Pulse Rate 76 06/01/18 10:00 Respiratory Rate 20 06/01/18 10:00 Blood Pressure 104/70 06/01/18 10:00 O2 Sat by Pulse Oximetry (%) 100 05/31/18 10:05 -Continue present care -Encourage ambulation -Encourage incentive spirometry -Bowel regimen
[2018-06-01] MEDS: OXYTOCIN 20 UNITS in 0.9% NS 20 UNIT/1,000 ML INFUS.BAG IV SCH (18:00)
[2018-06-01] MEDS: FERROUS SO4 325 MG TABLET (FP) PO SCH (21:22)
[2018-06-02] MEDS: IBUPROFEN 600 MG TABLET (FP) PO PRN ×2 (02:33→11:27)
[2018-06-02] MEDS: ACETAMINOPHEN 325 MG TABLET (FP) PO PRN ×2 (02:33→11:25)
--- NOTE | 2018-06-02 05:52 | PN ---
Post Progress Note - Subjective Subjective: pain scale 4/10 voiding without difficuty Post Day: 2 Type of Delivery: Repeat C/S Vital Signs: Vital Signs Temperature 98.3 F 06/01/18 22:00 Pulse Rate 100 H 06/01/18 22:00 Respiratory Rate 20 06/01/18 22:00 Blood Pressure 104/62 06/01/18 22:00 O2 Sat by Pulse Oximetry (%) 100 05/31/18 10:05 Breast Exam: Yes: Soft, Other (BF). No: Engorged Uterus: Yes: Fundus Firm, Fundus below umbilicus, Non-tender Incision: Yes: [place] intact. No: Redness, Oozing Abdomen/GI: Yes: Abdomen soft, Passing flatus (bm done ), Tolerating PO (diet). No: Abdominal Distention, Tender Lochia: Yes: Rubra Lochia, amount: Moderate Extremities: Yes: Calves non-tender Perineum: Yes: Intact Activity: Ambulating - Labs Labs: CBC WBC 11.7 K/mm3 (4.0-10.0) H 06/01/18 07:08 RBC 3.71 M/mm3 (3.60-5.2) 06/01/18 07:08 Hgb 11.2 GM/dL (10.7-15.3) 06/01/18 07:08 Hct 33.7 % (32.4-45.2) 06/01/18 07:08 MCV 90.9 fl (80-96) 06/01/18 07:08 MCH 30.0 pg (25.7-33.7) 06/01/18 07:08 MCHC 33.0 g/dl (32.0-36.0) 06/01/18 07:08 RDW 13.4 % (11.6-15.6) 06/01/18 07:08 Plt Count 256 K/MM3 (134-434) 06/01/18 07:08 MPV 7.5 fl (7.5-11.1) 06/01/18 07:08 Absolute Neuts (auto) 8.5 # 06/01/18 07:08 Neutrophils % 73.0 % (42.8-82.8) D 06/01/18 07:08 Lymphocytes % 21.4 % (8-40) D 06/01/18 07:08 Monocytes % 4.8 % (3.8-10.2) 06/01/18 07:08 Eosinophils % 0.4 % (0-4.5) 06/01/18 07:08 Basophils % 0.4 % (0-2.0) 06/01/18 07:08 Nucleated RBC % 0 % (0-0) 06/01/18 07:08 Problem List - Problems (1) with 39 completed weeks gestation Code(s): Z3A.39 - 39 WEEKS GESTATION OF (2) Previous section Code(s): Z98.891 - HISTORY OF UTERINE SCAR FROM PREVIOUS SURGERY (3) Obesity (BMI 30.0-34.9) Code(s): E66.9 - OBESITY, UNSPECIFIED (4) delivery delivered Code(s): O82 - ENCOUNTER FOR DELIVERY WITHOUT INDICATION (5) care following delivery Code(s): Z39.2 - ENCOUNTER FOR ROUTINE FOLLOW-UP Assessment/Plan stable plan ct po care
[2018-06-02] MEDS: ENOXAPARIN NA (PORCINE) 40 MG/0.4 ML DISP.SYRIN SQ SCH (10:00)
[2018-06-02] MEDS: PRENATAL VITAMINS W/ FOLIC ACID TABLET (FP) PO SCH (10:00)
[2018-06-02] MEDS: FERROUS SO4 325 MG TABLET (FP) PO SCH ×2 (10:00→22:49)
[2018-06-02] MEDS: SIMETHICONE 80 MG TAB.CHEW (FP) PO PRN (11:25)
[2018-06-02] MEDS: OXYTOCIN 20 UNITS in 0.9% NS 20 UNIT/1,000 ML INFUS.BAG IV SCH (12:36)
[2018-06-03] MEDS: ACETAMINOPHEN 325 MG TABLET (FP) PO PRN (04:31)
[2018-06-03] MEDS: IBUPROFEN 600 MG TABLET (FP) PO PRN (04:32)
[2018-06-03] MEDS: SIMETHICONE 80 MG TAB.CHEW (FP) PO PRN (04:32)
--- NOTE | 2018-06-03 07:12 | DS ---
Physical Exam-CURRICULUM DEVELOPMENT COORDINATOR Vital Signs: Vital Signs Temperature 99.0 F 06/02/18 20:28 Pulse Rate 88 06/02/18 20:28 Respiratory Rate 20 06/02/18 20:28 Blood Pressure 120/60 06/02/18 20:28 O2 Sat by Pulse Oximetry (%) 100 05/31/18 10:05 Constitutional: Yes: Well Nourished, Obese Eyes: Yes: WNL HENT: Yes: WNL Neck: Yes: WNL Cardiovascular: Yes: WNL Respiratory: Yes: WNL Gastrointestinal: Yes: WNL, Normal Bowel Sounds, Soft, Abdomen, Obese, Other ( bm done) Renal/: Yes: WNL, Other (voiding wothout difficulty). No: CVA Tenderness - Left, CVA Tenderness - Right ....Post : Yes: Uterus firm, Uterus non-tender, Moderate lochia rubra ( perineum intact) Breast(s): Yes: WNL, Other (BF , not engirged) Musculoskeletal: Yes: WNL Extremities: Yes: WNL. No: Calf Tenderness Edema: LLE: 1+, RLE: 1+ Wound/Incision: Yes: Clean/Dry, Shayla Intact, Open to air. No: Draining, Reddened Neurological: Yes: WNL, Alert, Oriented ...Motor Strength: WNL Psychiatric: Yes: WNL, Alert, Oriented Labs: CBC, BMP 06/01/18 07:08 Delivery - Delivery Section: Repeat, Low Flap Transverse (39 weeks, previous c/section) Type of Anesthesia: Spinal Episiotomy/Laceration: None EBL (cc): 800 Delivery, Single - Stages of Labor Date of Delivery: 05/31/18 Time of Delivery: 08:33 Time Placenta Delivered: 08:34 Placenta: Yes: Manual Removal, Uterine Exploration - Condition of Wardrobe Supervisor/Knocker Off Present: Yes Name: Frida Fleming Gender: Female Weight: 6 lb 2 oz Position: Right, OT Total Hours ROM (Hrs/Mins): 2MIN - 1 Minute Total Score: 9 5 Minutes Total Score: 9 - Feeding Plan Initial Plan: Elected not to breastfeed exclusively throughout hospitalization Remarks - Remarks Remarks: 33 yrs , previous c/section in [place], type unknown , requests for repeat c/ s PNC at [address] [place] [address] gbs neg Intraop course uneventful po course uneventful. discharge today Discharge Summary Reason For Visit: C/S ADMIT Current Active Problems delivery delivered (Acute) Obesity (BMI 30.0-34.9) (Acute) care following delivery (Acute) with 39 completed weeks gestation (Acute) Previous section (Acute) Condition: Stable - Instructions Diet, Activity, Other Instructions: Post Instructions DIET: Continue good diet high in protein, calcium, and iron rich foods. Drink at least eight (8) glasses of water daily in addition to other fluids. ct _ Regular diet MEDICATIONS: Continue vitamins and iron as previously directed. Motrin and Tylenol may be taken for minor discomfort. ACTIVITY: Mild to moderate exercise may be started in two (2) weeks. Take frequent rest periods. Resume normal activity after six (6) week check up. WOUND CARE OF OPERATIVE SITE: Continue use of perineal bottle until vaginal discharge stops. Keep area clean. Shower daily. Keep abdominal wound dry. Report any drainage or redness to physician. Tub baths, tampons and douches are not permitted for [address] Breast feeding & Bottle feeding BREAST CARE: (For those that are not ): If engorgement occurs: Wear tight fitting bra. Take Tylenol or Motrin for pain. Apply cold packs (ice in bags to each breast ) FAMILY PLANNING: There are many control alternatives to pursue and they should be discussed at your first office visit. You may resume sexual activity after your six (6) week check up. (Remember, breast feeding is not a contraceptive) NEXT PHYSICIAN APPOINTMENT: Be certain to call for a one (1 ) week appointment, unless otherwise directed. rtc for shayla removal , wound check Call Clinic or got to Emergency Dept if you have any of the following: Heavy vaginal bleeding Painful urination Leg pain Unusual odor noted to vaginal bleeding High fever Red streaking noted on breast Referrals: Vero Dunbar MD [Staff Physician] - Disposition: HOME - Home Medications Comprehensive Discharge Medication List: Ambulatory Orders Pnv No.95/Ferrous Fum/Folic AC [ Vitamin Tablet] 1 each PO DAILY Acetaminophen [Tylenol .Regular Strength -] 500 mg PO Q4H PRN #30 tablet Ferrous Sulfate [Feosol] 325 mg PO BID tab 06/01/18 Ibuprofen [Motrin -] 600 mg PO Q4H PRN #30 tablet 06/01/18 Vitamins (Sjr) - 1 tab PO DAILY tablet 06/01/18
[2018-06-03 09:38] LABS: BASO % 0.4 % (0-2.0); EOS % 2.9 % (0-4.5); HEMATOCRIT 30.4 % (32.4-45.2); HEMOGLOBIN 10.3 GM/dL (10.7-15.3); LYMPH % 29.5 % (8-40); MCH 30.7 pg (25.7-33.7); MEAN CELL VOLUME 90.3 fl (80-96); MEAN PLT VOLUME 7.6 fl (7.5-11.1); MONO % 6.5 % (3.8-10.2); NEUT % 60.7 % (42.8-82.8); PLATELET COUNT 273 K/MM3 (134-434); RBC 3.37 M/mm3 (3.60-5.2); RDW 13.4 % (11.6-15.6); WHITE BLOOD COUNT 8.7 K/mm3 (4.0-10.0)
[2018-06-03] MEDS: PRENATAL VITAMINS W/ FOLIC ACID TABLET (FP) PO SCH (10:02)
[2018-06-03] MEDS: FERROUS SO4 325 MG TABLET (FP) PO SCH (10:02)
[2018-06-03] MEDS: ENOXAPARIN NA (PORCINE) 40 MG/0.4 ML DISP.SYRIN SQ SCH (10:03)
[2018-06-03 11:00] VITALS: BP 104/70; PULSE 59; TEMP 98.1
--- NOTE | 2018-06-05 17:10 | PATH ---
Surgical Pathology Report Patient Name: ELIZABETH NARANJO Med. Rec. #: [id number] /Age/Gender: 1985 (Age: 33) / F Account: [id number] Location: [facility] OBS/DINKEY MOTOR OPERATOR Taken: 05/31/2018 Received: 06/01/2018 Reported: 06/05/2018 Physicians: Vero Dunbar M.D. Specimen(s) Received PLACENTA Clinical History , 39 weeks repeat , RhoGAM 02/2018 Final Diagnosis PLACENTA, SECTION: 365 g THIRD TRIMESTER PLACENTA WITH TRIVASCULAR UMBILICAL CORD AND UNREMARKABLE PLACENTAL MEMBRANES. Electronically Signed Elizabeth Casper M.D. Gross Description The specimen is received fresh labeled placenta and is a 365 gram, 18.0 x 15.0 x 2.2 cm. placenta with attached membranes and umbilical cord. The attached membranes are queen, translucent with focal opacities and insert marginally. The umbilical cord measures 10.5 cm. in length and averages 1.6 cm. in diameter. The cord inserts eccentrically, 3.8 cm. to the nearest margin. No true knots or strictures are identified. Cut surface of the umbilical cord reveals 3 vessels. The surface is tubbs-blue with minimal fibrin deposition and appropriate caliber vessels. The maternal surface is red-brown with focal defects. Sectioning reveals red-brown, spongy parenchyma. No lesions are identified. Automobile Mechanic Assistant sections are submitted in three cassettes as follows: 1- membrane rolls and umbilical cord; 2-3- full thickness sections of placenta. /06/01/2018 [facility]06/01/2018
== END 2018-06-03 13:10 | disposition home or self-care (01) | DRG 540 ==
LOC: JLDR 06:40 → J3W 10:44
PROVIDERS: ADMIT Obstetrics & Gynecology; ATTEND Obstetrics & Gynecology
PROC: 10D00Z1 Extraction of Products of Conception, Low, Open Approach (ICD-10-PCS; principal; 2018-05-31)
PROC: 3E0334Z Introduction of Serum, Toxoid and Vaccine into Peripheral Vein, Percutaneous Approach (ICD-10-PCS; 2018-05-31)
DX: O34.219 Maternal care for unspecified type scar from previous cesarean delivery (principal); N85.8 Other specified noninflammatory disorders of uterus; Z3A.39 39 weeks gestation of pregnancy; O26.893 Other specified pregnancy related conditions, third trimester; Z67.91 Unspecified blood type, Rh negative; O99.214 Obesity complicating childbirth; E66.9 Obesity, unspecified; Z68.30 Body mass index [BMI] 30.0-30.9, adult; Z37.0 Single live birth
CPT/HCPCS: 36415; 36600; 82803; 85025; 85461; 86999; 88307-TC